=== PATIENT | male | born 1985 | race Caucasian/White ===

== ENCOUNTER 2017-09-04 05:49 | Emergency (ER) | payer MEDICAID ==
[~2017-09-04] VITALS: Ht 172.7 cm; Wt 68.1 kg
[~2017-09-04 05:49] MED LIST: ACET1TAB25 PO; CIPR-259 PO; DOCU-20 PO; FIBER PO; LACT10SO PO; LEVA15HF4 INH; MOME13HF2 INH; OXCA150T5 PO; PALI9TAB3 PO; RANI150T8 PO; XAL0.005OS EACHEYE; ZOLP10TA5 PO; [UNRECOGNIZED DRUG - CODE] PO
[2017-09-04 05:51] VITALS: BP 133/89
[2017-09-04] MEDS ORDERED: triamcinolone acetonide 40mg/ml inj IM ONE (06:20)
== END 2017-09-04 06:41 | disposition home or self-care (01) ==
LOC: ER 05:49
DX: L23.9 Allergic contact dermatitis, unspecified cause (principal); F15.10 Other stimulant abuse, uncomplicated; Z88.6 Allergy status to analgesic agent
CPT/HCPCS: 96372; 99283; J3301

== ENCOUNTER 2018-08-12 13:12 | Emergency (ER) | payer MEDICAID ==
[~2018-08-12] VITALS: Ht 175.3 cm; Wt 62.4 kg
[2018-08-12] MEDS ORDERED: ALBU8HFA PO (13:52)
[2018-08-12] MEDS ORDERED: AMOX-422 PO (13:52)
[2018-08-12] MEDS ORDERED: METH4TAB81 PO (13:52)
[2018-08-12 14:06] VITALS: BP 135/81
== END 2018-08-12 14:11 | disposition home or self-care (01) ==
LOC: ER 13:12
DX: J01.00 Acute maxillary sinusitis, unspecified (principal); J45.909 Unspecified asthma, uncomplicated; G89.29 Other chronic pain; F15.90 Other stimulant use, unspecified, uncomplicated; Z59.0 Homelessness; Z88.6 Allergy status to analgesic agent; Z79.899 Other long term (current) drug therapy
CPT/HCPCS: 99283

== ENCOUNTER 2018-09-16 19:49 | Emergency (ER) | payer MEDICAID ==
[~2018-09-16] VITALS: Ht 175.3 cm; Wt 63.5 kg
[~2018-09-16 19:49] MED LIST changes: +METH4TAB81 PO
[2018-09-16 20:17] VITALS: BP 128/87
== END 2018-09-16 21:30 | disposition home or self-care (01) ==
LOC: ER 19:50
DX: F07.81 Postconcussional syndrome (principal); J45.909 Unspecified asthma, uncomplicated; G89.29 Other chronic pain; F17.200 Nicotine dependence, unspecified, uncomplicated; F15.90 Other stimulant use, unspecified, uncomplicated; Z59.0 Homelessness; Z88.6 Allergy status to analgesic agent; Z79.899 Other long term (current) drug therapy
CPT/HCPCS: 70450; 99284

== ENCOUNTER 2018-09-24 22:37 | Emergency (ER) | payer MEDICAID ==
[~2018-09-24] VITALS: Ht 170.2 cm; Wt 72.7 kg
[2018-09-24 22:57] VITALS: BP 149/101
--- NOTE | 2018-09-24 23:39 | NUR ---
at discharge, patient began threatening staff and cursing at them. security was called to escort patient out of the ED.
== END 2018-09-24 23:41 | disposition home or self-care (01) ==
LOC: ER 22:37
DX: F10.929 Alcohol use, unspecified with intoxication, unspecified (principal); J45.909 Unspecified asthma, uncomplicated; G89.29 Other chronic pain; F15.90 Other stimulant use, unspecified, uncomplicated; Z88.8 Allergy status to other drugs, medicaments and biological substances; Z79.899 Other long term (current) drug therapy; Y90.9 Presence of alcohol in blood, level not specified; Z59.0 Homelessness
CPT/HCPCS: 99284

== ENCOUNTER 2018-12-14 00:25 | Emergency (ER) | payer MEDICAID ==
[~2018-12-14] VITALS: Ht 172.7 cm; Wt 59.0 kg
[2018-12-14 00:26] VITALS: BP 147/90
[2018-12-14] MEDS ORDERED: proparacaine 0.5% ophthalmic drops 15ml EACHEYE ONE (01:40)
[2018-12-14] MEDS ORDERED: LORazepam 1 MG tablet PO ONE (01:45)
[2018-12-14] MEDS ORDERED: SULF1TAB49 PO (02:28)
[2018-12-14] MEDS ORDERED: ERYT1OIN6 LEFTEYE (02:28)
[2018-12-14] MEDS ORDERED: erythromycin ophthalmic ointment 1gm tube LEFTEYE ONE (02:30)
[2018-12-14] MEDS ORDERED: acetaminophen 325mg tablet PO ONE (02:30)
[2018-12-15] MEDS ORDERED: SULF1TAB49 PO (00:15)
[2018-12-15] MEDS ORDERED: ERYT1OIN6 LEFTEYE (00:15)
== END 2018-12-14 03:39 | disposition home or self-care (01) ==
LOC: ER 00:25
DX: S05.02XA Injury of conjunctiva and corneal abrasion without foreign body, left eye, initial encounter (principal); J34.89 Other specified disorders of nose and nasal sinuses; J45.909 Unspecified asthma, uncomplicated; G89.29 Other chronic pain; F32.9 Major depressive disorder, single episode, unspecified; F20.9 Schizophrenia, unspecified; F15.90 Other stimulant use, unspecified, uncomplicated; Z59.0 Homelessness; Z88.6 Allergy status to analgesic agent; Z79.2 Long term (current) use of antibiotics; Z79.899 Other long term (current) drug therapy; Y04.2XXA Assault by strike against or bumped into by another person, initial encounter; Y93.89 Activity, other specified; Y92.89 Other specified places as the place of occurrence of the external cause; Y99.8 Other external cause status
CPT/HCPCS: 99284

== ENCOUNTER 2018-12-14 21:56 | Emergency (ER) | payer MEDICAID ==
[~2018-12-14] VITALS: Ht 172.7 cm; Wt 59.1 kg
[~2018-12-14 21:56] MED LIST changes: +ERYT1OIN6 LEFTEYE; +SULF1TAB49 PO
[2018-12-14 22:11] VITALS: BP 139/98
[2018-12-15] MEDS ORDERED: ciprofloxacin 0.3% 2.5ml ophthalmic solution LEFTEYE STA (00:08)
[2018-12-15] MEDS ORDERED: cyclopentolate 1% 2ml ophthalmic solution LEFTEYE ONE (00:10)
[2018-12-15] MEDS ORDERED: SULF1TAB49 PO (00:15)
[2018-12-15] MEDS ORDERED: ERYT1OIN6 LEFTEYE (00:15)
== END 2018-12-15 00:40 | disposition home or self-care (01) ==
LOC: ER 21:57
DX: S05.12XA Contusion of eyeball and orbital tissues, left eye, initial encounter (principal); S05.11XA Contusion of eyeball and orbital tissues, right eye, initial encounter; J45.909 Unspecified asthma, uncomplicated; G89.29 Other chronic pain; F32.9 Major depressive disorder, single episode, unspecified; F20.9 Schizophrenia, unspecified; Z56.0 Unemployment, unspecified; Z88.6 Allergy status to analgesic agent; Z79.2 Long term (current) use of antibiotics; Z79.899 Other long term (current) drug therapy; Y04.2XXA Assault by strike against or bumped into by another person, initial encounter; Y93.89 Activity, other specified; Y92.89 Other specified places as the place of occurrence of the external cause; Y99.8 Other external cause status
CPT/HCPCS: 99283

== ENCOUNTER 2019-06-24 06:10 | Emergency (ER) | payer MEDICAID ==
[~2019-06-24] VITALS: Ht 175.3 cm; Wt 61.4 kg
[~2019-06-24 06:10] MED LIST changes: -ERYT1OIN6 LEFTEYE; -SULF1TAB49 PO
[2019-06-24] MEDS ORDERED: vancomycin/NS 1 GM ADD-VANTAGE 250 ML IV ONE (07:00)
[2019-06-24] MEDS ORDERED: SULF1TAB49 PO (07:13)
[2019-06-24 09:00] VITALS: BP 120/51
== END 2019-06-24 09:49 | disposition home or self-care (01) ==
LOC: ER 06:11
DX: L03.317 Cellulitis of buttock (principal); L02.31 Cutaneous abscess of buttock; J45.909 Unspecified asthma, uncomplicated; G89.29 Other chronic pain; F32.9 Major depressive disorder, single episode, unspecified; F20.9 Schizophrenia, unspecified; F12.90 Cannabis use, unspecified, uncomplicated; F15.90 Other stimulant use, unspecified, uncomplicated; Z59.0 Homelessness; Z72.89 Other problems related to lifestyle; Z88.6 Allergy status to analgesic agent; Z79.899 Other long term (current) drug therapy
CPT/HCPCS: 87070; 87077; 87186; 96365; 99284; J3370

== ENCOUNTER 2019-07-12 13:33 | Emergency (ER) | payer MEDICAID ==
[~2019-07-12] VITALS: Ht 175.3 cm; Wt 64.5 kg
[2019-07-12 14:05] VITALS: BP 132/74
[2019-07-12 14:37] LABS: CLARITY,URINE CLOUDY (Clear); COLOR,URINE YELLOW (Yellow); GLUCOSE, URINE NEGATIVE (Neg); KETONES,URINE NEGATIVE (Neg); LEUKOCYTE ESTERASE ,URINE MODERATE (Neg); NITRITES, URINE NEGATIVE (Neg); OCCULT BLOOD,URINE LARGE (Neg); PH,URINE 6.5 (4.8-8.0); PROTEIN,URINE TRACE mg/dl (Neg); UROBILINOGEN,URINE 0.2 E.U/dL (0.2-1.0)
[2019-07-12 14:41] LABS: UA COLLECTION TYPE CLN CATCH MIDSTREAM
[2019-07-12 14:50] LABS: RBC,URINE TNTC /HPF (0-2); SQUAMOUS EPITHELIAL CELL,UR FEW /LPF (FEW)
[2019-07-12 14:51] LABS: BACTERIA,URINE 2+ /HPF (Neg); WBC CLUMPS,URINE FEW /HPF (NEGATIVE); WBC,URINE 50-100 /HPF (0-4)
[2019-07-12] MEDS ORDERED: CEPH-572 PO (15:28)
== END 2019-07-12 15:38 | disposition home or self-care (01) ==
LOC: ER 13:34
DX: N39.0 Urinary tract infection, site not specified (principal); J45.909 Unspecified asthma, uncomplicated; G89.29 Other chronic pain; F32.9 Major depressive disorder, single episode, unspecified; F20.9 Schizophrenia, unspecified; F12.90 Cannabis use, unspecified, uncomplicated; F15.90 Other stimulant use, unspecified, uncomplicated; Z59.0 Homelessness; Z88.6 Allergy status to analgesic agent; Z79.2 Long term (current) use of antibiotics; Z79.899 Other long term (current) drug therapy
CPT/HCPCS: 81001; 87077; 87088; 87186; 99284

== ENCOUNTER 2019-07-27 20:45 | Emergency (ER) | payer MEDICAID ==
[~2019-07-27] VITALS: Ht 175.3 cm; Wt 58.0 kg
[~2019-07-27 20:45] MED LIST changes: +CEPH-572 PO
[2019-07-27 20:59] VITALS: BP 162/99
--- NOTE | 2019-07-27 21:08 | NUR ---
Pt c/o recurrent UTI as well as recurrent foot/toenail fungal infection
[2019-07-27 21:54] LABS: CLARITY,URINE CLEAR (Clear); COLOR,URINE YELLOW (Yellow); GLUCOSE, URINE NEGATIVE (Neg); KETONES,URINE NEGATIVE (Neg); LEUKOCYTE ESTERASE ,URINE TRACE (Neg); NITRITES, URINE NEGATIVE (Neg); OCCULT BLOOD,URINE NEGATIVE (Neg); PH,URINE 7.5 (4.8-8.0); PROTEIN,URINE NEGATIVE (Neg)
[2019-07-27 22:01] LABS: UA COLLECTION TYPE URINAL
[2019-07-27 22:02] LABS: BACTERIA,URINE NONE SEEN /HPF (Neg); RBC,URINE NONE SEEN /HPF (0-2); SQUAMOUS EPITHELIAL CELL,UR FEW /LPF (FEW)
[2019-07-27] MEDS ORDERED: CLOT12CR TOP (22:05)
== END 2019-07-27 22:20 | disposition home or self-care (01) ==
LOC: ER 20:46
DX: R30.0 Dysuria (principal); R31.9 Hematuria, unspecified; J45.909 Unspecified asthma, uncomplicated; G89.29 Other chronic pain; F12.90 Cannabis use, unspecified, uncomplicated; F15.90 Other stimulant use, unspecified, uncomplicated; Z59.0 Homelessness; Z88.6 Allergy status to analgesic agent; Z79.899 Other long term (current) drug therapy
CPT/HCPCS: 81001; 87088; 99283

== ENCOUNTER 2019-09-12 22:18 | Emergency (ER) | payer MEDICAID ==
[~2019-09-12] VITALS: Ht 175.3 cm; Wt 59.0 kg
[~2019-09-12 22:18] MED LIST changes: +CLOT12CR TOP
[2019-09-12 22:22] VITALS: BP 140/97
[2019-09-12] MEDS ORDERED: acetaminophen 325mg tablet PO ONE (23:00)
== END 2019-09-12 23:16 | disposition home or self-care (01) ==
LOC: ER 22:18
DX: M54.5 Low back pain (principal); J45.909 Unspecified asthma, uncomplicated; G89.29 Other chronic pain; F32.9 Major depressive disorder, single episode, unspecified; F20.9 Schizophrenia, unspecified; F12.90 Cannabis use, unspecified, uncomplicated; F15.90 Other stimulant use, unspecified, uncomplicated; Z59.0 Homelessness; Z88.6 Allergy status to analgesic agent; Z79.2 Long term (current) use of antibiotics; Z79.899 Other long term (current) drug therapy; W01.0XXA Fall on same level from slipping, tripping and stumbling without subsequent striking against object, initial encounter; Y93.02 Activity, running; Y92.89 Other specified places as the place of occurrence of the external cause; Y99.8 Other external cause status
CPT/HCPCS: 99282

== ENCOUNTER 2019-09-23 01:25 | Emergency (ER) | payer MEDICAID ==
[~2019-09-23] VITALS: Ht 175.3 cm; Wt 65.9 kg
[2019-09-23] MEDS ORDERED: diphenhydrAMINE 25mg capsule PO ONE (02:00)
[2019-09-23] MEDS ORDERED: LORazepam 1 MG tablet PO ONE (02:00)
[2019-09-23] MEDS ORDERED: clotrimazole topical cream 15gm tube TP ONE (02:00)
[2019-09-23] MEDS ORDERED: CLOT24CR2 TOP (02:02)
[2019-09-23 02:20] VITALS: BP 154/90
== END 2019-09-23 02:21 | disposition home or self-care (01) ==
LOC: ER 01:25
DX: F41.9 Anxiety disorder, unspecified (principal); B35.3 Tinea pedis; J45.909 Unspecified asthma, uncomplicated; G89.29 Other chronic pain; F32.9 Major depressive disorder, single episode, unspecified; F20.9 Schizophrenia, unspecified; F12.90 Cannabis use, unspecified, uncomplicated; F15.90 Other stimulant use, unspecified, uncomplicated; Z87.11 Personal history of peptic ulcer disease; Z72.89 Other problems related to lifestyle; Z59.0 Homelessness; Z88.6 Allergy status to analgesic agent; Z79.2 Long term (current) use of antibiotics; Y08.89XA Assault by other specified means, initial encounter; Y93.89 Activity, other specified; Y92.89 Other specified places as the place of occurrence of the external cause; Y99.8 Other external cause status
CPT/HCPCS: 99284; Q0163; 99283

== ENCOUNTER 2019-10-04 14:26 | Emergency (ER) | payer MEDICAID ==
[~2019-10-04] VITALS: Ht 175.3 cm; Wt 68.0 kg
[~2019-10-04 14:26] MED LIST changes: -ACET1TAB25 PO; -CEPH-572 PO; -CIPR-259 PO; -CLOT12CR TOP; +CLOT24CR2 TOP; -DOCU-20 PO; -FIBER PO; -LACT10SO PO; -LEVA15HF4 INH; -METH4TAB81 PO; -MOME13HF2 INH; -OXCA150T5 PO; -PALI9TAB3 PO; -RANI150T8 PO; -XAL0.005OS EACHEYE; -ZOLP10TA5 PO; -[UNRECOGNIZED DRUG - CODE] PO
[2019-10-04 14:33] VITALS: BP 154/84
[2019-10-04] MEDS ORDERED: OLANZapine 5mg rapidly disint. tablet PO ONE (14:40)
== END 2019-10-04 14:54 | disposition home or self-care (01) ==
LOC: ER 14:27
DX: F15.10 Other stimulant abuse, uncomplicated (principal); J45.909 Unspecified asthma, uncomplicated; G89.29 Other chronic pain; F32.9 Major depressive disorder, single episode, unspecified; F20.9 Schizophrenia, unspecified; F12.90 Cannabis use, unspecified, uncomplicated; Z59.0 Homelessness; Z88.6 Allergy status to analgesic agent; Z79.899 Other long term (current) drug therapy
CPT/HCPCS: 99283

== ENCOUNTER 2019-11-06 04:37 | Emergency (ER) | payer MEDICAID ==
[~2019-11-06] VITALS: Ht 175.3 cm; Wt 60.5 kg
[2019-11-06 04:39] VITALS: BP 122/77
== END 2019-11-06 05:07 | disposition home or self-care (01) ==
LOC: ER 04:37
DX: M79.18 Myalgia, other site (principal); R11.10 Vomiting, unspecified; R51 Headache; J45.909 Unspecified asthma, uncomplicated; G89.29 Other chronic pain; F32.9 Major depressive disorder, single episode, unspecified; F20.9 Schizophrenia, unspecified; F12.90 Cannabis use, unspecified, uncomplicated; F15.90 Other stimulant use, unspecified, uncomplicated; Z72.89 Other problems related to lifestyle; Z59.0 Homelessness; Z88.6 Allergy status to analgesic agent; Z79.899 Other long term (current) drug therapy
CPT/HCPCS: 99281

== ENCOUNTER 2019-12-04 15:48 | Emergency (ER) | payer MEDICAID ==
[~2019-12-04] VITALS: Ht 170.2 cm; Wt 68.2 kg
[2019-12-04 15:56] VITALS: BP 124/77
[2019-12-04] MEDS ORDERED: BENZ-16 PO (16:10)
[2019-12-04] MEDS ORDERED: ONDA4TAB6 PO (16:10)
== END 2019-12-04 17:30 | disposition home or self-care (01) ==
LOC: ER 15:49
DX: J06.9 Acute upper respiratory infection, unspecified (principal); Z20.828 Contact with and (suspected) exposure to other viral communicable diseases; R05 Cough; R19.7 Diarrhea, unspecified; R11.2 Nausea with vomiting, unspecified; J45.909 Unspecified asthma, uncomplicated; G89.29 Other chronic pain; F32.9 Major depressive disorder, single episode, unspecified; F20.9 Schizophrenia, unspecified; F12.90 Cannabis use, unspecified, uncomplicated; F15.90 Other stimulant use, unspecified, uncomplicated; Z72.89 Other problems related to lifestyle; Z59.0 Homelessness; Z88.6 Allergy status to analgesic agent; Z79.899 Other long term (current) drug therapy
CPT/HCPCS: 87635; 99283; C9803

== ENCOUNTER 2020-01-22 17:08 | Emergency (ER) | payer MEDICAID ==
[~2020-01-22] VITALS: Ht 175.3 cm; Wt 75.0 kg
[~2020-01-22 17:08] MED LIST changes: +ONDA4TAB6 PO
--- NOTE | 2020-01-22 18:10 | NUR ---
Provider FIDEL Bethea is with the patient at this time.
--- NOTE | 2020-01-22 18:48 | NUR ---
Patient signed release of information form to obtain the records and COVID test results from [facility].
[2020-01-22] MEDS ORDERED: DOXYCYCLINE 100MG CAPSULE PO STA (19:44)
[2020-01-22 19:45] VITALS: BP 154/83
[2020-01-22] MEDS ORDERED: DOXY100C2 PO (19:47)
== END 2020-01-22 19:55 | disposition home or self-care (01) ==
LOC: ER 17:10
DX: R25.2 Cramp and spasm (principal); R05 Cough; J45.909 Unspecified asthma, uncomplicated; G89.29 Other chronic pain; F32.9 Major depressive disorder, single episode, unspecified; F20.9 Schizophrenia, unspecified; F17.200 Nicotine dependence, unspecified, uncomplicated; F12.90 Cannabis use, unspecified, uncomplicated; F15.90 Other stimulant use, unspecified, uncomplicated; Z87.11 Personal history of peptic ulcer disease; Z72.89 Other problems related to lifestyle; Z59.0 Homelessness; Z88.6 Allergy status to analgesic agent; Z79.2 Long term (current) use of antibiotics; Z79.899 Other long term (current) drug therapy
CPT/HCPCS: 99283

== ENCOUNTER 2020-01-30 17:56 | Emergency (ER) | payer MEDICAID ==
[~2020-01-30] VITALS: Ht 175.3 cm; Wt 145.0 kg
[~2020-01-30 17:56] MED LIST changes: +DOXY100C2 PO
[2020-01-30 20:33] LABS: BASOPHILS # (AUTO) 0.1 X10'3 (0-0.2); BASOPHILS % (AUTO) 0.6 % (0-1); EOSINOPHILS # (AUTO) 0.3 X10'3 (0-0.9); EOSINOPHILS % (AUTO) 3.4 % (0-6); HEMATOCRIT 42.1 % (42.0-52.0); HEMOGLOBIN 14.2 g/dl (14.0-17.9); LYMPHOCYTES # (AUTO) 2.7 X10'3 (1.1-4.8); LYMPHOCYTES % (AUTO) 30.7 % (21-51); MEAN CORPUSCULAR HEMOGLOBIN 30.8 PG (27.0-31.0); MEAN CORPUSCULAR HGB CONC 33.8 g/dL (33.0-36.5); MEAN CORPUSCULAR VOLUME 91.2 FL (78-98); MEAN PLATELET VOLUME 8.8 FL (7.4-10.4); MONOCYTES # (AUTO) 1.3 X10'3 (0-0.9); MONOCYTES % (AUTO) 14.7 % (2-12); NEUTROPHILS # (AUTO) 4.5 X10'3 (1.8-7.7); NEUTROPHILS % (AUTO) 50.6 % (42-75); PLATELET COUNT 266 X10'3 (140-440); RED BLOOD COUNT 4.62 X10'6 (4.70-6.10); RED CELL DISTRIBUTION WIDTH 14.2 % (11.5-14.5); WHITE BLOOD COUNT 8.9 X10'3 (4.5-11.0)
[2020-01-30 20:37] VITALS: BP 127/87
[2020-01-30 20:47] LABS: ALANINE AMINOTRANSFERASE 40 U/L (12-78); ALBUMIN 3.8 G/DL (3.4-5.0); ALBUMIN/GLOBULIN RATIO 1.3 (1.1-1.5); ALKALINE PHOSPHATASE 49 IU/L (46-116); ANION GAP 6 (8-16); ASPARTATE AMINO TRANSFERASE 44 U/L (10-37); BILIRUBIN,TOTAL 0.9 MG/DL (0.1-1.0); BLOOD UREA NITROGEN 20 MG/DL (7-18); CALCIUM 7.7 MG/DL (8.5-10.1); CHLORIDE 104 MMOL/L (99-107); CREATININE 0.87 MG/DL (0.60-1.10); GLUCOSE 83 MG/DL (70-104); POTASSIUM 3.8 MMOL/L (3.5-5.1); SODIUM 138 MMOL/L (135-145); TOTAL CARBON DIOXIDE 27.6 MMOL/L (24-32); TOTAL PROTEIN 6.8 G/DL (6.4-8.2); eGFR > 90 ML/MIN
== END 2020-01-30 21:14 | disposition home or self-care (01) ==
LOC: ER 17:57
DX: G44.89 Other headache syndrome (principal); J45.909 Unspecified asthma, uncomplicated; G89.29 Other chronic pain; F32.9 Major depressive disorder, single episode, unspecified; F20.9 Schizophrenia, unspecified; F12.90 Cannabis use, unspecified, uncomplicated; F15.90 Other stimulant use, unspecified, uncomplicated; Z87.11 Personal history of peptic ulcer disease; Z72.89 Other problems related to lifestyle; Z59.0 Homelessness; Z88.6 Allergy status to analgesic agent; Z79.2 Long term (current) use of antibiotics; Z79.899 Other long term (current) drug therapy
CPT/HCPCS: 36415; 80053; 85025; 99284

== ENCOUNTER 2020-02-23 18:26 | Emergency (ER) | payer MEDICAID ==
[~2020-02-23] VITALS: Ht 172.7 cm; Wt 70.0 kg
[~2020-02-23 18:26] MED LIST changes: -DOXY100C2 PO
[2020-02-23 18:33] VITALS: BP 139/96
[2020-02-23] MEDS ORDERED: clotrimazole topical cream 15gm tube TP STA (21:31)
[2020-02-23] MEDS ORDERED: emollient combination-Eucerin 250 ML LOTION TP STA (21:31)
[2020-02-23] MEDS ORDERED: mineral oil/petrolatum, white cream 113gm jar TP STA (21:44)
== END 2020-02-23 22:19 | disposition home or self-care (01) ==
LOC: ER 18:27
DX: M79.672 Pain in left foot (principal); M79.671 Pain in right foot; R20.2 Paresthesia of skin; J45.909 Unspecified asthma, uncomplicated; G89.29 Other chronic pain; F32.9 Major depressive disorder, single episode, unspecified; F20.9 Schizophrenia, unspecified; F12.90 Cannabis use, unspecified, uncomplicated; F15.90 Other stimulant use, unspecified, uncomplicated; R23.4 Changes in skin texture; Z88.6 Allergy status to analgesic agent; Z79.899 Other long term (current) drug therapy
CPT/HCPCS: 99283

== ENCOUNTER 2020-05-29 16:52 | Emergency (ER) | payer MEDICAID ==
[~2020-05-29] VITALS: Ht 175.3 cm; Wt 59.1 kg
[2020-05-29 17:01] VITALS: BP 158/95
== END 2020-05-29 19:38 | disposition home or self-care (01) ==
LOC: ER 16:53
DX: J45.909 Unspecified asthma, uncomplicated (principal); G89.29 Other chronic pain; F32.9 Major depressive disorder, single episode, unspecified; F20.9 Schizophrenia, unspecified; F12.90 Cannabis use, unspecified, uncomplicated; F15.90 Other stimulant use, unspecified, uncomplicated; Z87.11 Personal history of peptic ulcer disease; Z72.89 Other problems related to lifestyle; Z59.0 Homelessness; Z88.6 Allergy status to analgesic agent; Z79.2 Long term (current) use of antibiotics; Z79.899 Other long term (current) drug therapy
CPT/HCPCS: 29125; 29260; 99283

== ENCOUNTER 2023-06-24 08:01 | Emergency (ER) | payer MEDICAID ==
[~2023-06-24] VITALS: Ht 175.3 cm; Wt 78.7 kg
[~2023-06-24 08:01] MED LIST changes: -CLOT24CR2 TOP; +CLOT24CR5 TOP
[2023-06-24 08:04] VITALS: BP 139/88; PULSE 98; RESP 16; TEMP 98; O2SAT 100
== END 2023-06-24 11:05 | disposition home or self-care (01) ==
LOC: ER 08:02
DX: R07.81 Pleurodynia (principal); J45.909 Unspecified asthma, uncomplicated; F17.200 Nicotine dependence, unspecified, uncomplicated; F12.90 Cannabis use, unspecified, uncomplicated; F15.90 Other stimulant use, unspecified, uncomplicated; Z88.6 Allergy status to analgesic agent
CPT/HCPCS: 71100; 99283

== ENCOUNTER 2023-06-25 16:18 | Emergency (ER) | payer MEDICAID ==
[~2023-06-25] VITALS: Ht 175.3 cm; Wt 77.3 kg
[2023-06-25] MEDS ORDERED: morphine 2 MG/ML inj. syringe IV PRN (17:10)
[2023-06-25 17:36] LABS: BASOPHILS % (AUTO) 0.4 % (0-1); EOSINOPHILS # (AUTO) 0.1 X10'3 (0-0.9); EOSINOPHILS % (AUTO) 1.5 % (0-6); HEMATOCRIT 46.8 % (42.0-52.0); LYMPHOCYTES # (AUTO) 1.8 X10'3 (1.1-4.8); LYMPHOCYTES % (AUTO) 21.3 % (21-51); MEAN CORPUSCULAR HEMOGLOBIN 29.9 PG (27.0-31.0); MEAN CORPUSCULAR HGB CONC 34.1 g/dL (33.0-36.5); MEAN CORPUSCULAR VOLUME 87.6 FL (78-98); MONOCYTES # (AUTO) 1.1 X10'3 (0-0.9); MONOCYTES % (AUTO) 12.8 % (2-12); NEUTROPHILS # (AUTO) 5.5 X10'3 (1.8-7.7); PLATELET COUNT 273 X10'3 (140-440); RED BLOOD COUNT 5.34 X10'6 (4.70-6.10); RED CELL DISTRIBUTION WIDTH 16.6 % (11.5-14.5); WHITE BLOOD COUNT 8.6 X10'3 (4.5-11.0)
[2023-06-25 17:39] LABS: ALBUMIN 3.6 G/DL (3.4-5.0); ANION GAP 9 (8-16); BLOOD UREA NITROGEN 8 MG/DL (7-18); BUN/CREATININE RATIO 10.1 (10.0-20.0); CALCIUM 7.6 MG/DL (8.5-10.1); CHLORIDE 105 MMOL/L (99-107); CREATININE 0.79 MG/DL (0.60-1.10); GLUCOSE 123 MG/DL (70-104); POTASSIUM 3.8 MMOL/L (3.5-5.1); SODIUM 141 MMOL/L (135-145); TOTAL CARBON DIOXIDE 26.7 MMOL/L (24-32); eCRCL 131 ML/MIN; eGFR > 90 ML/MIN
[2023-06-25] MEDS: ondansetron/PF 4mg/2ml inj IV ONE (17:43)
[2023-06-25] MEDS ORDERED: iohexol 300mg/ml 100ml inj. ONE (17:43)
[2023-06-25] MEDS: normal saline 1000ML IV soln IVB ONE (17:45)
[2023-06-25 19:51] VITALS: BP 123/86; PULSE 96; RESP 18; TEMP 98.9; O2SAT 99
== END 2023-06-25 19:57 | disposition home or self-care (01) ==
LOC: ER 16:19
DX: R10.812 Left upper quadrant abdominal tenderness (principal); R07.89 Other chest pain; F15.10 Other stimulant abuse, uncomplicated; Z79.899 Other long term (current) drug therapy; Y04.8XXA Assault by other bodily force, initial encounter; Y93.89 Activity, other specified; Y92.89 Other specified places as the place of occurrence of the external cause; Y99.8 Other external cause status
CPT/HCPCS: 36415; 74177; 80048; 85025; 96361; 96374; 99285; J2405; J3490; J7030; Q9967

== ENCOUNTER 2023-06-28 13:40 | Emergency (ER) | payer MEDICAID ==
[~2023-06-28] VITALS: Ht 175.3 cm; Wt 78.5 kg
[2023-06-28 13:44] VITALS: BP 124/91; PULSE 89; RESP 18; TEMP 98.3; O2SAT 94
== END 2023-06-28 14:04 | disposition home or self-care (01) ==
LOC: ER 13:40
DX: F15.10 Other stimulant abuse, uncomplicated (principal); Z00.8 Encounter for other general examination; G89.29 Other chronic pain; M54.9 Dorsalgia, unspecified; F12.10 Cannabis abuse, uncomplicated; F32.A Depression, unspecified; F20.9 Schizophrenia, unspecified; Z59.00 Homelessness unspecified; Z88.6 Allergy status to analgesic agent; Z79.899 Other long term (current) drug therapy
CPT/HCPCS: 99281